=== PATIENT | female | born 1950 | race Caucasian/White ===

== ENCOUNTER 2019-10-23 17:11 | Outpatient (CLI) | payer MEDICARE, OTHER ==
--- NOTE | 2019-10-23 18:33 | Ultrasound Report ---
PROCEDURE: Duplex Ext Veins Left INDICATIONS: LLE SWELLING, PAIN, H/O DVT TECHNIQUE: Real-time imaging, as well as color and pulse Doppler interrogation, were performed of the lower extr emity deep veins from the inguinal ligament to the popliteal fossa. COMPARISON: None. FINDINGS: The deep veins are normally compressible, and free of intraluminal thrombus. Color and pu lse Doppler demonstrate normal phasic intraluminal flow. There is normal augmentation response to di stal compression maneuver. Dilated compressible veins in posterior mid calf region is seen likely represent varicosities. No int raluminal filling defects are seen. IMPRESSION: No evidence of DVT in visualized left lower extremity veins. Possible varicosity vein se en posterior mid calf region which corresponds to patient's reported area of pain. No evidence of thr ombosis seen in visualized calf veins. Reviewed by: Clem Cantu MD on 10/23/2019 6:32 PM PDT Approved by: Clem Cantu MD on 10/23/2019 6:32 PM PDT Station ID: [id number]
== END 2019-10-23 17:12 | disposition home or self-care (01) ==
LOC: DI 17:11
PROVIDERS: ATTEND Internal Medicine Cardiovascular Disease
DX: M79.605 Pain in left leg (principal); M79.89 Other specified soft tissue disorders; Z86.718 Personal history of other venous thrombosis and embolism

== ENCOUNTER 2020-04-28 09:08 | Outpatient (CLI) | payer MEDICARE, OTHER | END 2020-04-28 09:09 | disposition critical access hospital (66) | LOC: EMS 09:08 | PROVIDERS: ATTEND Surgery | DX: R53.1 Weakness (principal); R55 Syncope and collapse | CPT/HCPCS: A0425; A0427 ==

== ENCOUNTER 2020-04-28 09:35 | Emergency (ER) | payer MEDICARE, OTHER ==
--- NOTE | 2020-04-28 09:55 | ED Physician Documentation ---
PD HPI DYSPNEA - Stated complaint Stated Complaint: SOA - Chief complaint Chief Complaint: Resp - History obtained from History obtained from: Patient, EMS - History of Present Illness Timing - onset: How many days ago (15) Timing - onset during: Light activity Timing - duration: Days (15) Timing - details: Abrupt onset, Still present, Waxing and waning Improved by: O2, Rest Worsened by: Exertion Associated symptoms: Cough, Diaphoresis. No: Fever, Wheezing, Chest pain / discomfort, Palpitations, Bilateral edema, Unilateral edema Similar symptoms before: Has not had sx before Recently seen: Clinic - Additional information Additional information: 69-year-old female had acute onset of dyspnea on 04/13/2020 and has had exertional dyspnea since that time. She does have an oximeter at home and she has been writing around 88%. On 13 April the patient did have an episode similar to today where she became diaphoretic felt like she would pass out and vomit and she became acutely short of breath. Since that time she has been short of breath with exertion and she has had a coronavirus test which was negative. She does not have cough or fever. Review of Systems Constitutional: denies: Fever, Chills Eyes: denies: Decreased vision Ears: denies: Ear pain Nose: denies: Rhinorrhea / runny nose, Congestion Throat: denies: Sore throat Cardiac: denies: Chest pain / pressure, Palpitations, Pedal edema, Calf pain Respiratory: reports: Dyspnea GI: denies: Abdominal Pain, Nausea, Vomiting : denies: Dysuria, Frequency Skin: denies: Rash Musculoskeletal: denies: Neck pain, Back pain, Extremity pain, Extremity swelling Neurologic: denies: Generalized weakness, Focal weakness, Numbness PD PAST MEDICAL HISTORY - Allergies Allergies/Adverse Reactions: Allergies Allergy/AdvReac Type Severity Reaction Status Date / Time bee venom protein (honey bee) Allergy Unknown Verified 04/28/20 09:42 PD ED PE NORMAL - Vitals Vital signs reviewed: Yes (hypertensive ) - General General: Alert and oriented X 3, No acute distress, Well developed/nourished, Other (appears "ashen" and anxious mildly tachpneic at rest) - HEENT HEENT: Atraumatic, PERRL, EOMI - Neck Neck: Supple, no meningeal sign, No bony TTP - Cardiac Cardiac: RRR, No murmur - Respiratory Respiratory: No respiratory distress, Clear bilaterally - Abdomen Abdomen: Normal bowel sounds, Soft, Non tender, Non distended, No organomegaly - Back Back: No CVA TTP, No spinal TTP - Derm Derm: Normal color, Warm and dry, No rash - Extremities Extremities: No deformity, No edema - Neuro Neuro: Alert and oriented X 3, forming operator 2-12 intact, No motor deficit, No sensory deficit, Normal speech Eye Opening: Spontaneous Motor: Obeys Commands Verbal: Oriented GCS Score: 15 - Psych Psych: Normal mood, Normal affect Results - Vitals Vitals: Vital Signs - 24 hr 04/28/20 04/28/20 04/28/20 09:40 10:16 10:46 Temperature 35.9 C L Heart Rate 93 93 94 Respiratory 18 24 22 Rate Blood Pressure 146/119 H 127/93 H 157/109 H O2 Saturation 94 90 L 88 L 04/28/20 04/28/20 04/28/20 11:00 11:30 12:00 Temperature Heart Rate 94 88 86 Respiratory 18 27 H 24 Rate Blood Pressure 152/98 H 147/99 H 135/110 H O2 Saturation 90 L 89 L 90 L 04/28/20 04/28/20 12:30 13:00 Temperature Heart Rate 80 88 Respiratory 22 24 Rate Blood Pressure 130/91 H 155/87 H O2 Saturation 93 99 Oxygen O2 Source Non-rebreather mask - EKG (time done) 1010 Rate: Rate (enter#) (89) Rhythm: NSR Intervals: Prolonged QT Ischemia: ST elevation c/w ischemia (anterior leads minimal ), T wave inversion (anterior leads) Compare to prior EKG: Old EKG unavailable Computer interpretation: Agree with computer - Labs Labs: Laboratory Tests 04/28/20 04/28/20 04/28/20 09:55 09:55 09:55 WBC 11.0 H RBC 4.67 Hgb 15.1 Hct 46.9 MCV 100.4 H MCH 32.3 H MCHC 32.2 RDW 12.5 Plt Count 211 MPV 9.6 Neut # (Auto) 9.2 H Lymph # (Auto) 1.0 L Gaines # (Auto) 0.5 Eos # (Auto) 0.2 Baso # (Auto) 0.1 Absolute Nucleated RBC 0.00 Nucleated RBC % 0.0 VBG pH VBG pCO2 VBG pO2 VBG HCO3 VBG Total CO2 VBG O2 Saturation VBG Base Excess Sodium 138 Potassium 4.2 Chloride 103 Carbon Dioxide 24 Anion Gap 11.0 BUN 19 Creatinine 0.9 Estimated GFR (MDRD) 62 L Glucose 164 H Lactic Acid Calcium 9.3 Total Bilirubin 0.8 AST 36 ALT 23 Alkaline Phosphatase 68 Troponin I High Sens B-Natriuretic Peptide 847 H Total Protein 7.5 Albumin 4.1 Globulin 3.4 Albumin/Globulin Ratio 1.2 Lipase 36 Nasal Adenovirus (PCR) Nasal B. parapertussis DNA (PCR) Nasal Coronavir 229E PCR Nasal Coronavir HKU1 PCR Nasal Coronavir NL63 PCR Nasal Coronavir OC43 PCR Nasal Enterovir/Rhinovir PCR Nasal Influenza B PCR Nasal Influenza A PCR Nasal Parainfluen 1 PCR Nasal Parainfluen 2 PCR Nasal Parainfluen 3 PCR Nasal Parainfluen 4 PCR Nasal RSV (PCR) Nasal B.pertussis DNA PCR Nasal C.pneumoniae (PCR) Nj Human Metapneumo PCR Nasal M.pneumoniae (PCR) Nasal SARS-CoV-2 (PCR) 04/28/20 04/28/20 04/28/20 09:55 09:55 10:35 WBC RBC Hgb Hct MCV MCH MCHC RDW Plt Count MPV Neut # (Auto) Lymph # (Auto) Gaines # (Auto) Eos # (Auto) Baso # (Auto) Absolute Nucleated RBC Nucleated RBC % VBG pH 7.299 L VBG pCO2 49.2 VBG pO2 24.0 L VBG HCO3 23.6 VBG Total CO2 25.1 VBG O2 Saturation 34.8 L VBG Base Excess -3.3 L Sodium Potassium Chloride Carbon Dioxide Anion Gap BUN Creatinine Estimated GFR (MDRD) Glucose Lactic Acid Calcium Total Bilirubin AST ALT Alkaline Phosphatase Troponin I High Sens 61.1 H* B-Natriuretic Peptide Total Protein Albumin Globulin Albumin/Globulin Ratio Lipase Nasal Adenovirus (PCR) NOT DETECTED Nasal B. parapertussis DNA (PCR) NOT DETECTED Nasal Coronavir 229E PCR NOT DETECTED Nasal Coronavir HKU1 PCR NOT DETECTED Nasal Coronavir NL63 PCR NOT DETECTED Nasal Coronavir OC43 PCR NOT DETECTED Nasal Enterovir/Rhinovir PCR NOT DETECTED Nasal Influenza B PCR NOT DETECTED Nasal Influenza A PCR NOT DETECTED Nasal Parainfluen 1 PCR NOT DETECTED Nasal Parainfluen 2 PCR NOT DETECTED Nasal Parainfluen 3 PCR NOT DETECTED Nasal Parainfluen 4 PCR NOT DETECTED Nasal RSV (PCR) NOT DETECTED Nasal B.pertussis DNA PCR NOT DETECTED Nasal C.pneumoniae (PCR) NOT DETECTED Nj Human Metapneumo PCR NOT DETECTED Nasal M.pneumoniae (PCR) NOT DETECTED Nasal SARS-CoV-2 (PCR) NOT DETECTED 04/28/20 11:49 WBC RBC Hgb Hct MCV MCH MCHC RDW Plt Count MPV Neut # (Auto) Lymph # (Auto) Gaines # (Auto) Eos # (Auto) Baso # (Auto) Absolute Nucleated RBC Nucleated RBC % VBG pH VBG pCO2 VBG pO2 VBG HCO3 VBG Total CO2 VBG O2 Saturation VBG Base Excess Sodium Potassium Chloride Carbon Dioxide Anion Gap BUN Creatinine Estimated GFR (MDRD) Glucose Lactic Acid 1.6 Calcium Total Bilirubin AST ALT Alkaline Phosphatase Troponin I High Sens B-Natriuretic Peptide Total Protein Albumin Globulin Albumin/Globulin Ratio Lipase Nasal Adenovirus (PCR) Nasal B. parapertussis DNA (PCR) Nasal Coronavir 229E PCR Nasal Coronavir HKU1 PCR Nasal Coronavir NL63 PCR Nasal Coronavir OC43 PCR Nasal Enterovir/Rhinovir PCR Nasal Influenza B PCR Nasal Influenza A PCR Nasal Parainfluen 1 PCR Nasal Parainfluen 2 PCR Nasal Parainfluen 3 PCR Nasal Parainfluen 4 PCR Nasal RSV (PCR) Nasal B.pertussis DNA PCR Nasal C.pneumoniae (PCR) Nj Human Metapneumo PCR Nasal M.pneumoniae (PCR) Nasal SARS-CoV-2 (PCR) - Rads (name of study) CT angio chest Radiology: Prelim report reviewed (Impression: Extensive numerous central and peripheral pulmonary emboli are detailed above, including saddle embolus. Reflux of contrast into hepatic veins suggest decreased cardiac output. Diffuse scarring/atelectasis. No definite focal consolidation large hiatal hernia additional chronic and inc), Discussed with rads (heavy clot burden saddle embolis and clot in all amaya), EMP read indepedently, See rad report Procedures - IVC sono (time) 0260 Bedside IVC sono: IVC measures (cm) (2.46), High CVP PD MEDICAL DECISION MAKING - ED course Complexity details: reviewed old records, reviewed results, re-evaluated patient, considered differential, d/w patient, d/w family (both daughter and are informed of serious nature and need for transfer and aggressive therapy. ) ED course: 69-year-old female without a history of lung disease who has had a prior DVT has developed acute exertional dyspnea 15 days ago and presents today to the emergency department with acute shortness of breath and hypoxia after mild exertion. Her exam shows clear breath sounds and good air movement and hypoxia. She is on a nonrebreather mask with some improvement. Her IVC is interrogated and appears plethoric and at the upper limit of normal. The immediate concern is for pulmonary embolism and a CT angiogram is undertaken. The CT angiogram shows massive pulmonary embolism saddle embolism embolism in all amaya and reflux of contrast into the inferior vena cava.The patient is hypoxic, has a high clot burden and there is evidence of right heart, these are indication for thrombolytic and after consult consultation with Dr. Porter at [facility] intravenous alteplase is ordered. She has been given subq lovenox prior. She has improvement in her oxygen saturation while awaiting transport. Departure - Departure Disposition: 02 Transfer Acute Care Hosp Clinical Impression: Acute massive pulmonary embolism Condition: Serious Discharge Date/Time: 04/28/20 13:20
[2020-04-28] MEDS ORDERED: IOVERSOL 320 100 ML VIAL IVP ONE ×2 (10:05→10:47)
[2020-04-28 10:08] LABS: VBG PCO2 49.2 mmHg (41-51); VBG PH 7.299 (7.31-7.41)
[2020-04-28 10:09] LABS: VBG BASE EXCESS -3.3 mmol/L (-2 - +2); VBG TOTAL CO2 25.1 mmol/L (24-29)
[2020-04-28 10:11] LABS: BASOPHILS # (AUTO) 0.1 10^3/uL (0.0-0.1); BASOPHILS % (AUTO) 0.6 %; EOSINOPHILS # (AUTO) 0.2 10^3/uL (0.0-0.7); HGB - HEMOGLOBIN 15.1 g/dL (12.0-16.0); LYMPHOCYTES % (AUTO) 8.7 %; MEAN CORPUSCULAR HEMOGLOBIN 32.3 pg (27.0-31.0); MEAN CORPUSCULAR HGB CONC 32.2 g/dL (32.0-36.0); MEAN CORPUSCULAR VOLUME 100.4 fL (81.0-99.0); MEAN PLATELET VOLUME 9.6 fL (7.9-10.8); MONOCYTES # (AUTO) 0.5 10^3/uL (0.0-1.0); MONOCYTES % (AUTO) 4.5 %; NEUTROPHILS # (AUTO) 9.2 10^3/uL (1.5-6.6); NEUTROPHILS % (AUTO) 83.7 %; PLT - PLATELET COUNT 211 10^3/uL (130-450); RED BLOOD COUNT 4.67 10^6/uL (4.20-5.40); RED CELL DISTRIBUTION WIDTH 12.5 % (12.0-15.0)
[2020-04-28 10:25] LABS: ALBUMIN 4.1 g/dL (3.2-5.5); ALBUMIN/GLOBULIN RATIO 1.2 (1.0-2.2); BILIRUBIN,TOTAL 0.8 mg/dL (0.2-1.0); CALCIUM 9.3 mg/dL (8.5-10.3); CREATININE 0.9 mg/dL (0.4-1.0); TOTAL PROTEIN 7.5 g/dL (6.7-8.2)
[2020-04-28] MEDS ORDERED: ENOXAPARIN 100 MG/ML SYRINGE SUBQ STA (10:36)
--- NOTE | 2020-04-28 11:17 | CT Report ---
PROCEDURE: ANGIO CHEST W/WO INDICATIONS: SOA hypoxia vitals unstable CONTRAST: IV CONTRAST: Optiray 320 ml: 80 PO CONTRAST: *NO PO CONTRAST TECHNIQUE: After the administration of intravenous contrast, 2 mm thick sections acquired from the pulmonary api elba to the posterior costophrenic angles. 3-dimensional maximum intensity projection (MIP) coronal a nd sagittal reformats were then acquired through the thorax. For radiation dose reduction, the follow ing was used: automated exposure control, adjustment of mA and/or kV according to patient size. COMPARISON: None. FINDINGS: Image quality: Excellent. Pulmonary arteries: Extensive pulmonary emboli are seen including saddle embolus at the bifurcation image 55/5. There is occlusive appearing thrombus present within the right lower lobe and middle loba r and segmental pulmonary arteries. There are also lobar and segmental filling defects within the rig ht upper lobe, left lower lobe, lingula and left upper lobe. Lungs and pleura: Scattered scarring/atelectasis. No acute consolidation. No pleural effusions or pn eumothorax. Central and peripheral airways are patent. Mediastinum: Heart size is normal, without pericardial effusion. No mediastinal or hilar adenopathy . Thoracic aorta is normal in caliber and enhancement. Large hiatal hernia. Bones and chest wall: No suspicious bony lesions. Ribs and thoracic spine appear intact throughout. The thyroid is normal. No axillary or supraclavicular adenopathy. Abdomen: A presumed 2 cm hepatic cyst, technically indeterminate IMPRESSION: Extensive numerous central and peripheral pulmonary emboli as detailed above, including saddle embolu s. Reflux of contrast into hepatic veins suggesting decreased cardiac output. Diffuse scarring/atelectasis. No definite focal consolidation Large hiatal hernia Additional chronic and incidental findings as above. Findings were personally telephoned and discussed with Dr. Rosales in the emergency department on 1 125 hours 04/28/2020. Reviewed by: Augusto Perez MD on 04/28/2020 11:15 AM PST Approved by: Augusto Perez MD on 04/28/2020 11:15 AM PST Station ID: [id number]
[2020-04-28] MEDS ORDERED: ALTEPLASE 100 MG in WATER FOR INJECTION,STERILE 100 ML IV STA ×2 (11:32→11:52)
[2020-04-28 11:42] LABS: C. PNEUMONIAE- RESP PCR PANEL NOT DETECTED
[2020-04-28 13:13] VITALS: BP 155/87
== END 2020-04-28 13:20 | disposition short-term general hospital (02) ==
LOC: EDUNIT# → ED 09:35
DX: I26.94 Multiple subsegmental thrombotic pulmonary emboli without acute cor pulmonale (principal); I26.92 Saddle embolus of pulmonary artery without acute cor pulmonale; R09.02 Hypoxemia; I07.1 Rheumatic tricuspid insufficiency; I45.81 Long QT syndrome; K44.9 Diaphragmatic hernia without obstruction or gangrene; Z86.718 Personal history of other venous thrombosis and embolism; Z20.828 Contact with and (suspected) exposure to other viral communicable diseases
CPT/HCPCS: 36415; 71275; 80053; 82803; 83605; 83690; 83880; 84484; 85025; 87631; 93005; 93308; 96372; 96374; 99284; 99285; J1650; J2997; Q9967; 0202U